=== PATIENT | female | born 1965 | race Two or more races ===

== ENCOUNTER 2023-07-22 10:30 | Inpatient (IN) | payer BC ==
[2023-07-22] VITALS (37 sets, daily range): BP systolic 78–162; BP diastolic 56–93; TEMP 98.5–98.8; O2SAT 90–100
[~2023-07-22] VITALS: Ht 167.6 cm; Wt 53.9 kg
[2023-07-22] MEDS: NOREPINEPHRINE 8 MG in IV NS 0.9% 250 ML IV ONE (11:05)
[2023-07-22] MEDS ORDERED: IV NS 0.9% 1,000 ML ONE (11:34)
[2023-07-22] MEDS ORDERED: IODIXANOL 0 ML IV ONE (11:34)
[2023-07-22] MEDS: DIGOXIN 0.25 MG TABLET PO ONE (11:36)
[2023-07-22] MEDS ORDERED: IV NS 0.9% 500 ML IV ONE (11:44)
[2023-07-22] MEDS ORDERED: LIDOCAINE HCL/PF 1% 30 ML SDV ONE ×2 (11:46→12:01)
[2023-07-22] MEDS ORDERED: ONDANSETRON HCL/PF 4 MG/2 ML VIAL ONE (11:59)
[2023-07-22] MEDS ORDERED: FENTANYL PF 100MCG/2ML AMPUL ONE (12:06)
[2023-07-22] MEDS ORDERED: Z GUARD REMEDY 4 OZ OINT TP PRN (12:30)
[2023-07-22] MEDS ORDERED: ONDANSETRON HCL/PF 4 MG/2 ML VIAL IVP PRN (12:30)
[2023-07-22] MEDS ORDERED: NOREPINEPHRINE 8 MG in IV D5W 242 ML IV PRN (12:30)
[2023-07-22] MEDS ORDERED: IVER3TAB2 PO (13:10)
[2023-07-22] MEDS ORDERED: COLC0.6C3 PO (13:10)
[2023-07-22] MEDS ORDERED: ONDA8TAB13 PO (13:10)
[2023-07-22] MEDS ORDERED: DULO30CA52 PO (13:10)
[2023-07-22] MEDS: IV NS 0.9% 1,000 ML IV PRN (13:45)
[2023-07-22] MEDS: IV NS 0.9% 1,000 ML BAG IV ONE (14:13)
[2023-07-22] MEDS: PANTOPRAZOLE 40 MG VIAL IV SCH (14:19)
[2023-07-22] MEDS: AMIODARONE 150 MG in IV D5W 100 ML IV ONE (14:31)
[2023-07-22] MEDS: AMIODARONE 450 MG in IV D5W 241 ML IV PRN (14:47)
[2023-07-22 15:49] LABS: BASOPHILS % (AUTO) 0.4 % (0.0-2.0); HEMATOCRIT 34 % (33-45); HEMOGLOBIN 11.2 g/dL (11.5-14.8); LYMPHOCYTES # (AUTO) 0.5 K/uL (0.8-4.8); LYMPHOCYTES % (AUTO) 4.6 % (20.0-44.0); MEAN CORPUSCULAR HEMOGLOBIN 31 PG (26.0-33.0); MEAN CORPUSCULAR HGB CONC 33 g/dl (31.0-36.0); MEAN CORPUSCULAR VOLUME 93 fL (82-100); MONOCYTES # (AUTO) 0.9 K/uL (0.1-1.30); MONOCYTES % (AUTO) 8.1 % (2.0-12.0); NEUTROPHILS # (AUTO) 9.3 K/uL (1.8-8.9); NEUTROPHILS % (AUTO) 86.9 % (43.0-81.0); PLATELET COUNT (AUTO) 269 K/uL (150-450); RED BLOOD CELL COUNT(AUTO) 3.67 MIL/uL (4.0-5.2); RED CELL DISTRIBUTION WIDTH 14.3 % (11.5-15.0); WHITE BLOOD COUNT (AUTO) 10.7 K/uL (4.3-11.0)
[2023-07-22 16:03] LABS: CALCIUM, SERUM 8.4 mg/dL (8.5-10.1); CARBON DIOXIDE 29 mmol/L (21-32); CHLORIDE 102 mmol/L (98-107); CREATININE 0.9 mg/dL (0.6-1.3); GLUCOSE 134 mg/dL (74-106); POTASSIUM 3.8 mmol/L (3.5-5.1); SODIUM SERUM 138 mmol/L (136-145); UREA NITROGEN, BLOOD 17 mg/dL (7-18)
[2023-07-22 16:06] LABS: INR 1.19 (0.91-1.10); PARTIAL THROMBOPLASTIN TIME 27.2 SEC (24.3-34.3); PROTHROMBIN TIME 12.5 SECS (9.2-11.1)
[2023-07-22 16:09] LABS: ALANINE AMINOTRANSFERASE 219 U/L (12-78); ALBUMIN 2.5 g/dL (3.4-5.0); ALKALINE PHOSPHATASE 226 U/L (46-116); ASPARTATE AMINOTRANSFERASE 125 U/L (15-37); BILIRUBIN,DIRECT 0.7 mg/dL (0.0-0.2); BILIRUBIN,TOTAL 1.1 mg/dL (0.2-1.0); TOTAL PROTEIN, SERUM 6.7 g/dL (6.4-8.2)
[2023-07-22 16:40] LABS: WBC, BODY FLUID 3111 /cu. mm. (0-200)
[2023-07-22 16:58] LABS: PROTEIN, BODY FLUID 5.6 G/DL
[2023-07-22 17:26] LABS: APPEARANCE,SPUN,BODY FLUID HAZY (CLEAR); MACROPHAGES, BODY FLUID 7; TOTAL VOLUME,BODY FLUID 750 mL
[2023-07-22 17:27] LABS: POLYNUCLEAR, BODY FLUID 72 % (0-25)
[2023-07-22] MEDS ORDERED: CHOL100043 PO (18:29)
[2023-07-22] MEDS ORDERED: CALC-1143 PO (18:29)
[2023-07-22] MEDS: DULOXETINE HCL 20 MG CAPSULE.DR PO SCH (22:05)
[2023-07-22] MEDS: TRAMADOL HCL 50 MG TABLET PO STA (22:06)
[2023-07-22] MEDS: COLCHICINE 0.6 MG TABLET PO SCH (22:06)
[2023-07-23] VITALS (39 sets, daily range): BP systolic 92–153; BP diastolic 46–88; TEMP 98–98.2; O2SAT 93–99
[2023-07-23 05:04] LABS: BASOPHILS % (AUTO) 0.3 % (0.0-2.0); EOSINOPHILS # (AUTO) 0.1 K/uL (0.0-0.7); HEMATOCRIT 33 % (33-45); HEMOGLOBIN 10.8 g/dL (11.5-14.8); LYMPHOCYTES # (AUTO) 1.3 K/uL (0.8-4.8); LYMPHOCYTES % (AUTO) 14.1 % (20.0-44.0); MEAN CORPUSCULAR HEMOGLOBIN 31 PG (26.0-33.0); MEAN CORPUSCULAR HGB CONC 33 g/dl (31.0-36.0); MEAN CORPUSCULAR VOLUME 94 fL (82-100); MONOCYTES # (AUTO) 0.8 K/uL (0.1-1.30); MONOCYTES % (AUTO) 8.6 % (2.0-12.0); NEUTROPHILS # (AUTO) 7.2 K/uL (1.8-8.9); PLATELET COUNT (AUTO) 285 K/uL (150-450); RED BLOOD CELL COUNT(AUTO) 3.48 MIL/uL (4.0-5.2); RED CELL DISTRIBUTION WIDTH 14.1 % (11.5-15.0); WHITE BLOOD COUNT (AUTO) 9.4 K/uL (4.3-11.0)
[2023-07-23 05:23] LABS: CREATININE 0.6 mg/dL (0.6-1.3); MAGNESIUM 1.9 mg/dL (1.8-2.4); PHOSPHORUS 2.2 mg/dL (2.5-4.9); POTASSIUM 3.9 mmol/L (3.5-5.1)
[2023-07-23 05:33] LABS: THYROID STIMULATING HORMONE 0.209 uIU/mL (0.358-3.74)
[2023-07-23] MEDS: TRAMADOL HCL 50 MG TABLET PO PRN (06:30)
[2023-07-23] MEDS: NEUTRA PHOS 1 POWD.PACKET PO SCH (09:44)
[2023-07-23] MEDS: TRAZODONE 50 MG TABLET PO SCH (23:20)
[2023-07-24] VITALS (19 sets, daily range): BP systolic 91–145; BP diastolic 45–94; TEMP 98–98.2; O2SAT 90–99
[2023-07-24] MEDS ORDERED: AMIODARONE 450 MG in IV D5W 250 ML IV PRN (07:30)
[2023-07-24] MEDS: AMIODARONE 150 MG in IV D5W 100 ML IV ONE ×2 (07:30→07:39)
[2023-07-24] MEDS ORDERED: AMIODARONE 450 MG in IV D5W 241 ML IV PRN (07:30)
[2023-07-24] MEDS: PANTOPRAZOLE 40 MG TABLET.DR PO SCH (08:33)
== END 2023-07-24 14:53 | disposition short-term general hospital (02) | DRG 314 ==
LOC: ER 10:37 → ICU 12:32
PROVIDERS: ADMIT Nurse Practitioner Acute Care; ATTEND Internal Medicine
PROC: 0W9D30Z Drainage of Pericardial Cavity with Drainage Device, Percutaneous Approach (ICD-10-PCS; principal; 2023-07-22)
DX: I31.4 Cardiac tamponade (principal); R57.0 Cardiogenic shock; I31.31 Malignant pericardial effusion in diseases classified elsewhere; C50.919 Malignant neoplasm of unspecified site of unspecified female breast; D63.8 Anemia in other chronic diseases classified elsewhere; Z79.899 Other long term (current) drug therapy; Z92.21 Personal history of antineoplastic chemotherapy; Z92.3 Personal history of irradiation; I48.91 Unspecified atrial fibrillation
CPT/HCPCS: 33010; 36415; 71045-TC; 75825-TC; 80048-TC; 80061-TC; 80076-TC; 82728-TC; 83540-TC; 83605-TC; 83735-TC; 84100-TC; 84439-TC; 84443-TC; 84484-TC; 85025-TC; 85730-TC; 87040-TC; 89051-TC; 93307-TC; A4223; C1894; C9113; G0378; G0500; J0282; J1644; J2405; J3010; J3490; J7030; J7040; J7050; J7060; Q9967